=== PATIENT | male | born 1935 | race Caucasian/White ===

== ENCOUNTER → 2020-06-01 | Outpatient (CLI) | payer MEDICARE, BC | END | disposition home or self-care (01) | LOC: CLISVCS 11:54 | PROVIDERS: ATTEND Anesthesiology | DX: Z20.828 Contact with and (suspected) exposure to other viral communicable diseases (principal) | CPT/HCPCS: 87635 ==

== ENCOUNTER 2020-06-06 06:42 | Day surgery (SDC) | payer MEDICARE, OTHER ==
[~2020-06-06] VITALS: Ht 180.3 cm; Wt 88.0 kg
[2020-06-06] MEDS ORDERED: LACTATED RINGERS 1,000 ML IV SCH (07:30)
[2020-06-06] MEDS ORDERED: CHLORHEXIDINE 15 ML UDC ONE (07:30)
[2020-06-06] MEDS ORDERED: CHLORHEXIDINE 15 ML UDC MM ONE (07:30)
[2020-06-06 07:49] VITALS: BP 134/87
[2020-06-06 07:58] LABS: BASOPHILS % (AUTO) 0 % (0-1); EOSINOPHILS % (AUTO) 2 % (1-7); LYMPHOCYTES % (AUTO) 21 % (22-44); MEAN CORPUSCULAR HGB CONC 32.3 g/dL (33.2-36.2); MEAN PLATELET VOLUME 8.2 fL (7.4-10.4); MONOCYTES % (AUTO) 13 % (2-9); NEUTROPHILS % (AUTO) 63 % (42-75); PLATELET COUNT 163 x10^3/uL (130-400); RED BLOOD COUNT 3.69 x10^6/uL (4.38-5.82); RED CELL DISTRIBUTION WIDTH 17.5 % (9.4-14.8)
[2020-06-06 08:05] LABS: MD NO
[2020-06-06] MEDS ORDERED: FERR-46 PO (08:07)
[2020-06-06] MEDS ORDERED: ATOR40TA PO (08:07)
[2020-06-06] MEDS ORDERED: OMEP20TA62 PO (08:07)
[2020-06-06] MEDS ORDERED: MULT-658 PO (08:07)
[2020-06-06] MEDS ORDERED: ALLO300T PO (08:07)
[2020-06-06] MEDS ORDERED: CALC-112 PO (08:07)
[2020-06-06] MEDS ORDERED: FINA5TAB4 PO (08:07)
[2020-06-06] MEDS ORDERED: TEST75GE TP (08:07)
[2020-06-06] MEDS ORDERED: GLUC1TAB35 PO (08:07)
[2020-06-06] MEDS ORDERED: CYAN50TA PO (08:07)
[2020-06-06] MEDS ORDERED: TERA2CAP3 PO (08:07)
[2020-06-06] MEDS ORDERED: FENTANYL PF 100 MCG/2ML IV PRN (08:30)
[2020-06-06] MEDS ORDERED: ACETAMINOPHEN 325 MG TABLET PO PRN (08:30)
[2020-06-06] MEDS ORDERED: OXYcodone 5 MG/5 ML ORAL.SOL UDC PO PRN (08:30)
[2020-06-06] MEDS ORDERED: FENTANYL PF 100 MCG/2ML ONE (09:22)
[2020-06-06] MEDS ORDERED: PROPOFOL 10 MG/ML, 20ML ONE ×2 (09:59)
== END 2020-06-06 11:45 | disposition home or self-care (01) ==
LOC: OR 06:42
PROVIDERS: ATTEND Internal Medicine Geriatric Medicine
DX: K31.89 Other diseases of stomach and duodenum (principal); C16.1 Malignant neoplasm of fundus of stomach; Z79.899 Other long term (current) drug therapy; Z95.2 Presence of prosthetic heart valve; Z95.0 Presence of cardiac pacemaker
CPT/HCPCS: 36415; 43242; 85025; 88172; 88173; 88305; 93005; J2704; J3010; J7120